=== PATIENT | male | born 1990 | race African-American/Black ===

== ENCOUNTER 2016-09-21 11:21 | Emergency (ER) | payer SELFPAY ==
[2016-09-21 11:34] VITALS: BP 132/73
[2016-09-21] MEDS ORDERED: ALBUTEROL SULFATE 0.083% NEB 2.5 MG/3 ML AMPUL NEB ONE (11:36)
[2016-09-21] MEDS ORDERED: PREDNISONE 20 MG TABLET PO ONE (11:36)
--- NOTE | 2016-09-21 11:37 | ER Document Report ---
ED Medical Screen (RME) - General Stated Complaint: SHORTNESS OF BREATH Notes: Patient complains of cough and congestion since Tuesday. He is having some shortness of breath, has a history of asthma, does not have an inhaler. Denies fever. I have greeted and performed a rapid initial assessment of this patient. A comprehensive ED assessment and evaluation of the patient, analysis of test results and completion of the medical decision making process will be conducted by additional ED providers. TRAVEL OUTSIDE OF THE [place] IN LAST 30 DAYS: No - Related Data Allergies/Adverse Reactions: No Known Allergies Allergy (Verified 09/21/16 11:37) Past Medical History Pulmonary Medical History: Reports: Hx Asthma - Immunizations Immunizations up to date: Yes Hx Diphtheria, Pertussis, Tetanus Vaccination: Yes Physical Exam - Vital signs Vitals: Temp Pulse Resp BP Pulse Ox 98.2 F 100 16 132/73 H 97 09/21/16 11:33 09/21/16 11:33 09/21/16 11:33 09/21/16 11:33 09/21/16 11:33 - Respiratory Respiratory status: No respiratory distress Breath sounds: Decreased air movement, Wheezing Course - Vital Signs Vital signs: Temp Pulse Resp BP Pulse Ox 98.2 F 100 16 132/73 H 97 09/21/16 11:33 09/21/16 11:33 09/21/16 11:33 09/21/16 11:33 09/21/16 11:33
== END 2016-09-21 12:55 | disposition left against medical advice (07) ==
LOC: ER 11:21
DX: Z53.9 Procedure and treatment not carried out, unspecified reason (principal); R06.02 Shortness of breath; R05 Cough; R09.81 Nasal congestion
CPT/HCPCS: 94640; 99281; J7512

== ENCOUNTER 2018-04-18 04:26 | Emergency (ER) | payer SELFPAY ==
[2018-04-18] MEDS ORDERED: HYDROCODONE/ACETAMINOPHEN 5-325 MG TABLET PO ONE (05:38)
[2018-04-18] MEDS ORDERED: IBUPROFEN 800 MG TABLET PO ONE (05:38)
[2018-04-18] MEDS ORDERED: DIPH/PERTUSS(ACELL)/TETANUS VAC/PF 0.5 ML SYR (>=10YO) IM ONE (05:41)
--- NOTE | 2018-04-18 05:48 | ER Document Report ---
ED Medical Screen (RME) - General Chief Complaint: Foot Injury Stated Complaint: FOOT PAIN Time Seen by Provider: 04/18/18 05:37 Mode of Arrival: Ambulatory Information source: Patient TRAVEL OUTSIDE OF THE [place] IN LAST 30 DAYS: No - HPI Notes: 04/18/18 05:47 RME 27-year-old male states just prior to arrival he was walking barefoot in his kitchen and something punctured his plantar aspect of the right foot. He reports no numbness or paresthesia but has significant pain with ambulation. He questions if this was glass. Looking around the room he was unable to find what was it may have punctured him that he stepped on. Examination shows puncture wound 1 cm mid plantar aspect of the foot. No proximal erythema or adenopathy. No evidence for infection. Distally he has good tendon function and sensation. We will soak the area. Obtain an x-ray. Tetanus shot and pain medications. Please see partner's note for full exam and mgmt. - Related Data Allergies/Adverse Reactions: No Known Allergies Allergy (Verified 09/21/16 11:37) Past Medical History Pulmonary Medical History: Reports: Hx Asthma Renal/ Medical History: Denies: Hx Peritoneal Dialysis - Immunizations Immunizations up to date: Yes Hx Diphtheria, Pertussis, Tetanus Vaccination: Yes Physical Exam - Vital signs Vitals: Temp Pulse Resp BP Pulse Ox 98.8 F 118 H 16 147/72 H 98 04/18/18 04:39 04/18/18 04:39 04/18/18 04:39 04/18/18 04:39 04/18/18 04:39 Course - Vital Signs Vital signs: Temp Pulse Resp BP Pulse Ox 98.8 F 118 H 16 147/72 H 98 04/18/18 04:39 04/18/18 04:39 04/18/18 04:39 04/18/18 04:39 04/18/18 04:39
--- NOTE | 2018-04-18 07:08 | ER Document Report ---
ED General - General Chief Complaint: Foot Injury Stated Complaint: FOOT PAIN Time Seen by Provider: 04/18/18 05:37 Mode of Arrival: Ambulatory Notes: Patient is a 27-year-old male that presents to the emergency department for chief complaint of right foot pain after stepping on what he thinks was glass. Patient states he was walking around his home around 3 or 4 this morning, on the inside, and believes he stepped on some glass, or a nail but he is not entirely sure because it was dark. He is now complaining of 8 out of 10 pain in the bottom of his foot, and painful to walk on, describes it as a sharp sensation. Denies falling or having any other injuries. He is not up-to-date by his tetanus, but this was given by the initial provider that saw the patient. Past Medical History: Denies chronic medical conditions Past Surgical History: Denies prior surgeries Social History: Denies tobacco, alcohol or drug use Family History: Reviewed and noncontributory for presenting illness Allergies: Reviewed, see documented allergy list. REVIEW OF SYSTEMS: Unless otherwise stated in this report the patient's positive and negative responses for review of systems for constitutional, eyes, ENT, cardiovascular, respiratory, gastrointestinal, neurological, genitourinary, musculoskeletal, and integumentary systems and related systems to the presenting problem are either as stated in the HPI or were not pertinent or were negative for the symptoms and/or complaints related to the presenting medical problem. PHYSICAL EXAMINATION: Vital signs reviewed, nursing noted reviewed. GENERAL: Well-appearing, well-nourished and in no acute distress. HEAD: Atraumatic, normocephalic. EYES: Eyes appear normal, extraocular movements intact, sclera anicteric, conjunctiva are normal. ENT: nares patent, oropharynx clear without exudates. Moist mucous membranes. NECK: Normal range of motion, supple without lymphadenopathy LUNGS: Breath sounds clear to auscultation bilaterally and equal. No wheezes rales or rhonchi. HEART: Heart rate tachycardic, regular rhythm, no audible murmurs ABDOMEN: Soft, nontender, normoactive bowel sounds. No rebound, guarding, or rigidity. No masses appreciated. EXTREMITIES: The right foot has a superficial chevron shaped laceration, that is deep to the superficial tissues, not into the subcutaneous, it is tender to palpate in this area, no active bleeding or drainage at this time. The rest the patient's extremity exam is grossly unremarkable, good range of motion, no pitting or edema. NEUROLOGICAL: No focal neurological deficits. Moves all extremities spontaneously Motor and sensory grossly intact on exam. PSYCH: Normal mood, normal affect. SKIN: Warm, Dry, normal turgor, no rashes or lesions noted on exposed skin TRAVEL OUTSIDE OF THE [place] IN LAST 30 DAYS: No - Related Data Allergies/Adverse Reactions: No Known Allergies Allergy (Verified 09/21/16 11:37) Past Medical History - General Information source: Patient - Social History Smoking Status: Current Every Day Smoker Frequency of alcohol use: None Drug Abuse: None Family History: Reviewed & Not Pertinent Patient has suicidal ideation: No Patient has homicidal ideation: No Pulmonary Medical History: Reports: Hx Asthma Renal/ Medical History: Denies: Hx Peritoneal Dialysis - Immunizations Immunizations up to date: Yes Hx Diphtheria, Pertussis, Tetanus Vaccination: Yes Physical Exam - Vital signs Vitals: Temp Pulse Resp BP Pulse Ox 98.8 F 118 H 16 147/72 H 98 04/18/18 04:39 04/18/18 04:39 04/18/18 04:39 04/18/18 04:39 04/18/18 04:39 Course - Re-evaluation Re-evalutation: Patient seen and examined vital signs reviewed. Patient was evaluated and treated as appropriate for the patient's presenting symptoms and complaint, with consideration of any critical or life threatening conditions that may be associated with their obtained history and exam as noted above. Patient was treated with [place], ibuprofen The patient was re-evaluated and was still having some pain, x-ray reviewed demonstrated possible foreign body, will inject with lidocaine, and irrigate the patient's foot and remove foreign body if visualized, otherwise will irrigate extensively, there is small what appeared to be metal filings under the patient's flap wound, the patient was extensively irrigated, and cleaned out , no deep foreign body appreciated. Evaluation was most consistent with puncture wound to the right foot, patient be discharged on prophylactic antibiotics for 5 days, advised to take over-the- counter Motrin if needed for pain. Plan of care was discussed with the patient at this point, after careful consideration I feel that that patient can be discharged from the emergency department, the patient was educated treatments and reasons to return to the emergency department based on their presumed diagnosis as noted above, they were advised to followup with a primary care physician in 2-3 days. Patient was agreeable to plan of care. *Note is created using voice recognition software and may contain spelling, syntax or grammatical errors. Foot X-Ray 04/18/18 05:38 FINDINGS/IMPRESSION: 3 views of the right foot. No acute fracture or dislocation. Small radiopaque foreign bodies measuring 2-3 mm noted in the subcutaneous soft tissues at the plantar aspect of the foot at the area of laceration as indicated by the marker. Normal osseous mineralization. 2010 [email or web address]- All Rights Reserved - Vital Signs Vital signs: Temp Pulse Resp BP Pulse Ox 98.8 F 118 H 16 147/72 H 98 04/18/18 04:39 04/18/18 04:39 04/18/18 04:39 04/18/18 04:39 04/18/18 04:39 Procedures - Laceration/Wound Repair Right Foot Wound length (cm): 2.5 Wound's Depth, Shape: Superficial Laceration pre-procedure: Shur-Clens applied Anesthetic type: 1% Lidocaine Wound explored: Contaminated, Foreign body removed Irrigated w/ Saline (mLs): 200 Wound Repaired With: Steri-strips Post-procedure wound care: Sterile dressing applied Post-procedure NV exam normal: Yes Complications: No Discharge - Discharge Clinical Impression: Laceration of right foot Qualifiers: Encounter type: initial encounter Qualified Code(s): S91.311A - Laceration without foreign body, right foot, initial encounter Instructions: Laceration Care (OM) Additional Instructions: Leave the Steri-Strips in place until they fall off on their own, but at the same time monitor for any pus drainage, worsening pain or redness to the area. Prescriptions: Amox Tr/Potassium Clavulanate [Augmentin 875-125 Tablet] 1 tab PO BID 5 Days # 10 tablet Referrals: CHRIS ANDRADE MD [[facility]UNITY BASED STAFF] - Follow up in 3-5 days (OR YOUR PRIMARY CARE. )
--- NOTE | 2018-04-18 07:18 | RADIOLOGY REPORT (SQ) ---
EXAM DESCRIPTION: XR FOOT 3 OR MORE VIEWS COMPLETED DATE/TME: 04/18/2018 05:38 CLINICAL HISTORY: 27 years, Male, R foot pain FB COMPARISON: None. FINDINGS/IMPRESSION: 3 views of the right foot. No acute fracture or dislocation. Small radiopaque foreign bodies measuring 2-3 mm noted in the subcutaneous soft tissues at the plantar aspect of the foot at the area of laceration as indicated by the marker. Normal osseous mineralization. 2010 [employer]- All Rights Reserved
[2018-04-18] MEDS ORDERED: LIDOCAINE 1% INJ-PF (10 MG/ML) 30 ML SDV INJ ONE (07:37)
[2018-04-18 09:14] VITALS: BP 138/88
== END 2018-04-18 09:14 | disposition home or self-care (01) ==
LOC: ER 04:26
DX: S91.321A Laceration with foreign body, right foot, initial encounter (principal); W45.8XXA Other foreign body or object entering through skin, initial encounter; Y92.009 Unspecified place in unspecified non-institutional (private) residence as the place of occurrence of the external cause; J45.909 Unspecified asthma, uncomplicated
CPT/HCPCS: 99283; 90471; 73630; 90715; J3490

== ENCOUNTER 2020-04-17 15:14 | Emergency (ER) | payer SELFPAY ==
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
[2020-04-17 17:26] VITALS: BP 124/92
== END 2020-04-17 17:27 | disposition home or self-care (01) ==
LOC: ER 15:14
DX: M54.2 Cervicalgia (principal); M54.5 Low back pain; Y04.0XXA Assault by unarmed brawl or fight, initial encounter; J45.909 Unspecified asthma, uncomplicated; F17.200 Nicotine dependence, unspecified, uncomplicated
CPT/HCPCS: 99283